=== PATIENT | female | born 1975 ===

== ENCOUNTER 2018-12-19 18:43 | Emergency (ER) | payer MEDICAID, OTHER ==
[2018-12-19 19:06] VITALS: BP 133/80; PULSE 59; RESP 18; TEMP 98.1; O2SAT 98; BMI 33.6
--- NOTE | 2018-12-19 19:16 | C.PDOC ---
History Of Present Illness 43 y/o female with htn presents with open wound to left foot. pt reports [place], got 3 [place] and tetanus update at that time week. pt put aloe vera on wound and sts it opened, and has been open for the last week. denies fever and drainage from wound. Time Seen by Provider: 12/19/18 19:04 Chief Complaint (Nursing): Lower Extremity Problem/Injury History Per: Patient, Family History/Exam Limitations: no limitations Onset/Duration Of Symptoms: Days (injury 3 weeks ago, open 1 week) Current Symptoms Are (Timing): Worse Severity: Moderate Past Medical History Reviewed: Historical Data, Nursing Documentation, Vital Signs Vital Signs: Last Vital Signs Temp 98.1 F 12/19/18 18:49 Pulse 59 L 12/19/18 18:49 Resp 18 12/19/18 18:49 BP 133/80 12/19/18 18:49 Pulse Ox 98 12/19/18 18:49 - Medical History PMH: HTN Family History: States: Unknown Family Hx - Social History Hx Alcohol Use: No Hx Substance Use: No - Immunization History Hx Tetanus Toxoid Vaccination: Yes Hx Influenza Vaccination: No Hx Pneumococcal Vaccination: No Review Of Systems Constitutional: Negative for: Fever, Chills Skin: Positive for: Other (open wound left foot) Neurological: Negative for: Weakness, Numbness Physical Exam - Physical Exam Appears: Non-toxic, No Acute Distress Skin: Warm, Dry, Other (open wound to medial left ankle 3 cm long and width 0.5 cm at ends and 1 cm in middle. mild surrounding erythema. pinkinsh granulation tissue in center, one blue colored suture at one end of wound. ) Extremity: Normal ROM, Tenderness (at site of wound left medial ankle area), Other (see skin) Pulses: Left Dorsalis Pedis: Normal Neurological/Psych: Oriented x3, Normal Speech, Normal Cognition ED Course And Treatment O2 Sat by Pulse Oximetry: 98 Medical Decision Making Medical Decision Making: left foot soaked in saline/betadine solution, gently washed off remaining cream pt had applied and one visible suture removed. dressing applied. pt to be referred to wound clinic Disposition Counseled Patient/Family Regarding: Diagnosis, Need For Followup, Rx Given - Disposition Referrals: [facility] [place] [facility] [Outside] Disposition: HOME/ ROUTINE Disposition Time: 19:55 Condition: GOOD Additional Instructions: Mantenga la herida cubierta hasta maana por la noche, luego lvela con agua y jabn, squela suavemente y airee, y vuelva a colocar el vendaje. Llama al centro de heridas el lunes para hacer mikel jeramy. Tkae antibiticos hasta que termine y Tylenol para el dolor si es necesario. Keep wound covered until tomorrow night, then wash with soap and water, pat dry gently and air out, and re-apply bandage. Call wound center on Friday to make appintment. Tkae antibiotics until done and Tylenol for pain if needed. Prescriptions: Acetaminophen [Tylenol 325mg tab] 650 mg PO Q6 #30 tab Amoxicillin/Clavulanate [Augmentin 875 MG-125 MG] 1 tab PO BID #14 tab Instructions: Wound Care (DC) Forms: [employer] (Thai), Gen Discharge Inst Ecuadorean, [email or web address] (Ecuadorean) Print Language: PANAMANIAN - Clinical Impression Clinical Impression: Open wound of left ankle due to dog bite
[2018-12-19] MEDS ORDERED: Amoxicillin-Clav 875-125 mg Tab PO STA (19:38)
[2018-12-19] MEDS ORDERED: Amoxicillin-Clav 875-125 mg Tab PO ONE (19:46)
== END 2018-12-19 20:08 | disposition home or self-care (01) ==
LOC: C.ER 18:43
DX: S91.002A Unspecified open wound, left ankle, initial encounter (principal); W54.0XXA Bitten by dog, initial encounter; I10 Essential (primary) hypertension